=== PATIENT | female | born 1965 | race Caucasian/White ===

== ENCOUNTER → 2020-03-22 | Outpatient (CLI) | payer OTHER ==
[~2020-03-22] MED LIST: BACTRIM 400 MG-1 TAB PO; CYCLOBENZAPRINE10 MG PO; EFFEXOR PO; HYDROCODONE BIT1 T11 PO; SINGULAIR4 MG PO; ZYRTEC10 M3 PO
[2020-03-22 11:13] LABS: BASO # 0.1 10*3/uL (0.0-0.1); BASO % 0.7 % (0.0-1.0); EOS # 0.2 10*3/uL (0.0-0.4); EOS % 2.7 % (1.0-4.0); HEMATOCRIT 40.9 % (37.0-47.0); LYMPH # 2.9 10*3/uL (1.3-4.4); LYMPH % 42.8 % (27.0-41.0); MEAN CELL VOLUME 85.9 fl (81.0-99.0); MEAN CORPUSCULAR HGB 27.7 pg (27.0-31.0); MEAN CORPUSCULAR HGB CONC 32.3 g/dl (33.0-37.0); MEAN PLATELET VOLUME 8.7 fl (9.6-12.3); MONO # 0.4 10*3/uL (0.1-1.0); MONO % 5.2 % (3.0-9.0); NEUT # 3.3 10*3/uL (2.3-7.9); NEUT % 48.5 % (47.0-73.0); PLATELET COUNT AUTOMATED 300 10*3/uL (130-400); RED BLOOD COUNT 4.76 10*6/uL (4.10-5.10); RED CELL DISTRI WIDTH 14.5 % (0-14.5); WHITE BLOOD COUNT 6.8 10*3/uL (4.8-10.8)
[2020-03-22 11:36] LABS: ALBUMIN 4.2 gm/dl (3.1-4.5); ALKALINE PHOSPHATASE 104 U/L (45-117); BUN 11 mg/dl (7-24); CHLORIDE 114 mmol/L (98-107); CREATININE 0.64 mg/dL (0.55-1.02); FREE T4 0.88 ng/dl (0.76-1.46); POTASSIUM 3.9 mmol/L (3.5-5.1); SGOT/AST 9 IU/L (3-35); SGPT/ALT 21 U/L (12-78); SODIUM 141 mmol/L (136-145); TOTAL PROTEIN 7.8 gm/dL (6.4-8.2)
== END | disposition home or self-care (01) ==
LOC: LAB 09:51 → MRI 10:00
PROVIDERS: Psychiatry & Neurology Clinical Neurophysiology
DX: G93.89 Other specified disorders of brain (principal); G43.109 Migraine with aura, not intractable, without status migrainosus; H53.30 Unspecified disorder of binocular vision

== ENCOUNTER → 2020-04-04 | Outpatient (CLI) | payer OTHER ==
[2020-04-04 10:15] LABS: CHOLESTEROL 259 mg/dL (<200); HDL CHOLESTEROL 47 mg/dl (40-60); LDL CHOLESTEROL 135 mg/dL (9-159); TRIGLYCERIDES 384 mg/dl (<150); VLDL CHOLESTEROL 77 mg/dL (6-40)
== END | disposition home or self-care (01) ==
LOC: LAB 09:22
PROVIDERS: ATTEND Psychiatry & Neurology Clinical Neurophysiology
DX: I73.9 Peripheral vascular disease, unspecified (principal); G37.9 Demyelinating disease of central nervous system, unspecified; G43.709 Chronic migraine without aura, not intractable, without status migrainosus

== ENCOUNTER → 2020-04-28 | Outpatient (CLI) | payer OTHER | END | disposition home or self-care (01) | LOC: MRI 12:45 | PROVIDERS: ATTEND Psychiatry & Neurology Clinical Neurophysiology | DX: G43.109 Migraine with aura, not intractable, without status migrainosus (principal); E78.49 Other hyperlipidemia; Z87.891 Personal history of nicotine dependence ==

== ENCOUNTER 2022-02-25 13:54 | Emergency (ER) | payer MEDICARE, MEDICAID ==
[~2022-02-25] VITALS: Ht 162.5 cm; Wt 77.1 kg
[2022-02-25] MEDS ORDERED: LAMOTRIGINE100 MG PO (14:42)
[2022-02-25] MEDS ORDERED: 'CLONIDINE0.1 MG PO (14:42)
[2022-02-25] MEDS ORDERED: QUETIAPINE FUMA50 M1 PO (14:43)
[2022-02-25] MEDS ORDERED: QUETIAPINE FUM300 M1 PO (14:43)
[2022-02-25] MEDS ORDERED: REXULTI2 MG PO (14:43)
[2022-02-25] MEDS ORDERED: ATORVASTATIN CA10 M1 PO (14:44)
[2022-02-25] MEDS ORDERED: HYDROXYZINE PAM50 MG PO (14:44)
[2022-02-25] MEDS ORDERED: ROPINIROLE HYD0.5 MG PO (14:44)
[2022-02-25] MEDS ORDERED: SUMATRIPTAN SUC50 M1 PO (14:44)
[2022-02-25] MEDS ORDERED: PROVENTIL HFA6.7 GM INH (14:45)
[2022-02-25] MEDS ORDERED: IMITREX50 MG PO (14:46)
[2022-02-25 15:07] LABS: BASO # 0.1 10*3/uL (0.0-0.1); BASO % 0.4 % (0.0-1.0); EOS # 0.1 10*3/uL (0.0-0.4); EOS % 0.7 % (1.0-4.0); HEMATOCRIT 39.2 % (37.0-47.0); LYMPH # 2.8 10*3/uL (1.3-4.4); LYMPH % 24.2 % (27.0-41.0); MEAN CELL VOLUME 86.9 fl (81.0-99.0); MEAN CORPUSCULAR HGB 28.8 pg (27.0-31.0); MEAN CORPUSCULAR HGB CONC 33.2 g/dl (33.0-37.0); MEAN PLATELET VOLUME 8.7 fl (9.6-12.3); MONO # 0.9 10*3/uL (0.1-1.0); MONO % 7.9 % (3.0-9.0); NEUT # 7.8 10*3/uL (2.3-7.9); NEUT % 66.5 % (47.0-73.0); PLATELET COUNT AUTOMATED 219 10*3/uL (130-400); RED BLOOD COUNT 4.51 10*6/uL (4.10-5.10); RED CELL DISTRI WIDTH 13.4 % (0-14.5); WHITE BLOOD COUNT 11.7 10*3/uL (4.8-10.8)
[2022-02-25 15:07] LABS: BILIRUBIN 2+ (Negative); BLOOD Negative (Negative); CLARITY Turbid (Clear); COLOR Orange (Yellow); GLUCOSE Negative (Negative); KETONE Negative (Negative); LEUKO ESTERASE 2+ (Negative); NITRITE Positive (Negative); SPECIFIC GRAVITY >= 1.030 (1.001-1.030)
[2022-02-25 15:23] LABS: BACTERIA 2+; CALCIUM OXALATE CRYSTALS 1+; EPITHELIAL CELLS 0-2; HYALINE CAST 0-2
[2022-02-25 15:30] LABS: ALKALINE PHOSPHATASE 82 U/L (45-117); BUN 16 mg/dl (7-24); CHLORIDE 111 mmol/L (98-107); CREATININE 1.14 mg/dL (0.55-1.02); LIPASE 93 U/L (73-393); POTASSIUM 3.5 mmol/L (3.5-5.1); SGOT/AST 23 IU/L (3-35); SGPT/ALT 27 U/L (12-78); SODIUM 138 mmol/L (136-145); TOTAL PROTEIN 7.1 gm/dL (6.4-8.2)
[2022-02-25] MEDS ORDERED: MACROBID100 M1 PO (19:06)
[2022-02-25] MEDS ORDERED: ONDANSETRON4 MG SL (19:08)
== END 2022-02-25 19:14 | disposition home or self-care (01) ==
LOC: ED 13:54
PROVIDERS: Physician Assistant
DX: N39.0 Urinary tract infection, site not specified (principal); N20.0 Calculus of kidney; Z79.899 Other long term (current) drug therapy; Z98.51 Tubal ligation status; Z90.89 Acquired absence of other organs

== ENCOUNTER → 2022-02-28 | Outpatient (CLI) | payer MEDICARE, MEDICAID ==
[~2022-02-28] MED LIST changes: +'CLONIDINE0.1 MG PO; +ATORVASTATIN CA10 M1 PO; +HYDROXYZINE PAM50 MG PO; +IMITREX50 MG PO; +LAMOTRIGINE100 MG PO; +MACROBID100 M1 PO; +ONDANSETRON4 MG SL; +PROVENTIL HFA6.7 GM INH; +QUETIAPINE FUM300 M1 PO; +QUETIAPINE FUMA50 M1 PO; +REXULTI2 MG PO; +ROPINIROLE HYD0.5 MG PO; +SUMATRIPTAN SUC50 M1 PO
== END | disposition home or self-care (01) ==
LOC: MAMMO 07:27
PROVIDERS: ATTEND Nurse Practitioner Family
DX: Z12.31 Encounter for screening mammogram for malignant neoplasm of breast (principal)

== ENCOUNTER 2023-02-09 11:31 | Inpatient (IN) | payer MEDICARE, MEDICAID ==
[2023-02-09] VITALS (8 sets, daily range): BP systolic 118–151; BP diastolic 72–101
[~2023-02-09] VITALS: Ht 162.5 cm; Wt 77.1 kg
[2023-02-09 12:25] LABS: BASO # 0.1 10*3/uL (0.0-0.1); BASO % 0.5 % (0.0-1.0); EOS # 0.1 10*3/uL (0.0-0.4); EOS % 0.8 % (1.0-4.0); HEMATOCRIT 42.4 % (37.0-47.0); LYMPH # 3.4 10*3/uL (1.3-4.4); MEAN CELL VOLUME 86.5 fl (81.0-99.0); MEAN CORPUSCULAR HGB 29.4 pg (27.0-31.0); MEAN PLATELET VOLUME 8.8 fl (9.6-12.3); MONO # 1.1 10*3/uL (0.1-1.0); NEUT # 8.5 10*3/uL (2.3-7.9); NEUT % 64.4 % (47.0-73.0); PLATELET COUNT AUTOMATED 248 10*3/uL (130-400); RED CELL DISTRI WIDTH 13.8 % (0-14.5); WHITE BLOOD COUNT 13.2 10*3/uL (4.8-10.8)
[2023-02-09 12:51] LABS: ALKALINE PHOSPHATASE 98 U/L (46-116); BUN 10 mg/dl (9-23); CHLORIDE 108 mmol/L (98-107); POTASSIUM 2.9 mmol/L (3.4-5.1); SGPT/ALT 20 U/L (10-49); TOTAL PROTEIN 7.3 gm/dL (6.0-8.0)
[2023-02-09 13:01] LABS: BILIRUBIN 1+ (Negative); BLOOD Negative (Negative); CLARITY Cloudy (Clear); COLOR Dark Yellow (Yellow); GLUCOSE Trace (Negative); KETONE Negative (Negative); LEUKO ESTERASE Trace (Negative); NITRITE Positive (Negative); PH 5.5 (4.5-8.0); SPECIFIC GRAVITY 1.025 (1.001-1.030)
[2023-02-09 13:14] LABS: HYALINE CAST 0-2; MUCOUS 1+
[2023-02-09 13:15] LABS: BACTERIA 2+; WBC 0-2 wbc/hpf (0-5)
[2023-02-09 22:57] LABS: URINE AMPHETAMINES Negative (1000ng/ml); URINE BARBITURATES Negative (200ng/ml); URINE BENZODIAZEPINES Negative (200ng/ml); URINE CANNABINOIDS (THC) Negative (50ng/ml); URINE COCAINE Positive (300ng/ml); URINE METHADONE Negative (300ng/ml); URINE OPIATES Positive (300ng/ml); URINE PHENCYCLIDINE Negative (25ng/ml)
[2023-02-10] VITALS (7 sets, daily range): BP systolic 135–163; BP diastolic 72–96
[2023-02-10 06:47] LABS: BASO # 0.1 10*3/uL (0.0-0.1); BASO % 0.4 % (0.0-1.0); HEMATOCRIT 39.7 % (37.0-47.0); LYMPH # 1.9 10*3/uL (1.3-4.4); LYMPH % 13.4 % (27.0-41.0); MEAN CELL VOLUME 84.6 fl (81.0-99.0); MEAN CORPUSCULAR HGB 29.4 pg (27.0-31.0); MEAN CORPUSCULAR HGB CONC 34.8 g/dl (33.0-37.0); MEAN PLATELET VOLUME 8.7 fl (9.6-12.3); MONO # 0.9 10*3/uL (0.1-1.0); MONO % 6.4 % (3.0-9.0); NEUT # 11.2 10*3/uL (2.3-7.9); NEUT % 79.2 % (47.0-73.0); PLATELET COUNT AUTOMATED 277 10*3/uL (130-400); RED BLOOD COUNT 4.69 10*6/uL (4.10-5.10); RED CELL DISTRI WIDTH 13.5 % (0-14.5); WHITE BLOOD COUNT 14.2 10*3/uL (4.8-10.8)
[2023-02-10 08:07] LABS: ALKALINE PHOSPHATASE 97 U/L (46-116); BUN 7 mg/dl (9-23); CHLORIDE 109 mmol/L (98-107); CHOLESTEROL 132 mg/dL (<200); LDL CHOLESTEROL 47 mg/dL (9-159); SGPT/ALT 18 U/L (10-49); TOTAL PROTEIN 7.2 gm/dL (6.0-8.0); TRIGLYCERIDES 83 mg/dl (<150)
[2023-02-11] VITALS: BP 147/91
[2023-02-11] MEDS ORDERED: METFORMIN850 MG PO (06:13)
[2023-02-11] MEDS ORDERED: MIRTAZAPINE15 M2 PO (06:14)
[2023-02-11] MEDS ORDERED: PALIPERIDONE E1.5 MG PO (06:14)
[2023-02-11] MEDS ORDERED: QUETIAPINE FUM100 M3 PO (06:15)
[2023-02-11] MEDS ORDERED: REXULTI3 MG PO (06:16)
[2023-02-11] MEDS ORDERED: QUETIAPINE FUM400 M1 PO (06:16)
[2023-02-11] MEDS ORDERED: TOPIRAMATE100 M2 PO (06:18)
[2023-02-11 07:21] LABS: BASO % 0.2 % (0.0-1.0); HEMATOCRIT 41.3 % (37.0-47.0); LYMPH # 2.1 10*3/uL (1.3-4.4); LYMPH % 12.6 % (27.0-41.0); MEAN CELL VOLUME 82.6 fl (81.0-99.0); MEAN CORPUSCULAR HGB 28.2 pg (27.0-31.0); MEAN CORPUSCULAR HGB CONC 34.1 g/dl (33.0-37.0); MEAN PLATELET VOLUME 8.8 fl (9.6-12.3); MONO # 1.3 10*3/uL (0.1-1.0); MONO % 7.9 % (3.0-9.0); NEUT # 13.3 10*3/uL (2.3-7.9); NEUT % 78.8 % (47.0-73.0); PLATELET COUNT AUTOMATED 330 10*3/uL (130-400); RED CELL DISTRI WIDTH 13.6 % (0-14.5); WHITE BLOOD COUNT 16.9 10*3/uL (4.8-10.8)
[2023-02-11 07:43] LABS: BUN 7 mg/dl (9-23); CHLORIDE 105 mmol/L (98-107); POTASSIUM 3.1 mmol/L (3.4-5.1)
[2023-02-11 08:00] VITALS: BP 150/96
[2023-02-11 11:02] LABS: ACT PARTIAL THROMBO TIME 28.8 SECONDS (20.0-32.1); INTERNATIONAL NORM RATIO 1.1 (2.0-3.5)
[2023-02-11 12:00] VITALS: BP 148/84
[2023-02-11 15:55] VITALS: BP 147/84
[2023-02-11 16:10] VITALS: BP 145/79
[2023-02-11 16:25] VITALS: BP 148/81
[2023-02-11 16:51] LABS: CSF RBC 240000 /uL
[2023-02-11 17:03] LABS: CSF GLUCOSE 22 mg/dL (40-80)
[2023-02-11 17:22] LABS: CSF WBC 1944 /uL
[2023-02-11 17:30] LABS: CLARITY TURBID; COLOR RED
[2023-02-11 18:11] LABS: CSF LYMPHOCYTES 21 % (40-80); CSF MONOCYTES 2 % (15-45)
[2023-02-13 15:07] LABS: CSF CRYPTOCOCCUS AG Negative (Negative)
== END 2023-02-11 19:30 | disposition short-term general hospital (02) | DRG 871 ==
LOC: ED 11:31 → EDHOLD 17:24 → 5E 17:24
PROVIDERS: Internal Medicine; Nurse Practitioner Family; Student in an Organized Health Care Education/Training Program; ADMIT Family Medicine; ATTEND Family Medicine
PROC: 009U3ZX Drainage of Spinal Canal, Percutaneous Approach, Diagnostic (ICD-10-PCS; principal; 2023-02-11)
DX: A41.9 Sepsis, unspecified organism (principal); G03.9 Meningitis, unspecified; N30.00 Acute cystitis without hematuria; G43.909 Migraine, unspecified, not intractable, without status migrainosus; R29.818 Other symptoms and signs involving the nervous system; G89.29 Other chronic pain; R29.898 Other symptoms and signs involving the musculoskeletal system; E87.8 Other disorders of electrolyte and fluid balance, not elsewhere classified; F41.9 Anxiety disorder, unspecified; E87.6 Hypokalemia; G43.019 Migraine without aura, intractable, without status migrainosus; E11.65 Type 2 diabetes mellitus with hyperglycemia; E78.2 Mixed hyperlipidemia; F32.A Depression, unspecified; F43.10 Post-traumatic stress disorder, unspecified; I10 Essential (primary) hypertension; F17.210 Nicotine dependence, cigarettes, uncomplicated; Z79.51 Long term (current) use of inhaled steroids; Z79.899 Other long term (current) drug therapy

== ENCOUNTER 2023-02-25 20:19 | Emergency (ER) | payer MEDICARE, MEDICAID ==
[~2023-02-25 20:19] MED LIST changes: +METFORMIN850 MG PO; +MIRTAZAPINE15 M2 PO; +PALIPERIDONE E1.5 MG PO; +QUETIAPINE FUM100 M3 PO; +QUETIAPINE FUM400 M1 PO; +REXULTI3 MG PO; +TOPIRAMATE100 M2 PO
[2023-02-26] MEDS ORDERED: BIOTIN10 MG PO (00:11)
[2023-02-26] MEDS ORDERED: CALCIUM 500-VI1 EAC6 PO (00:13)
[2023-02-26] MEDS ORDERED: CETIRIZINE10 MG PO (00:14)
[2023-02-26] MEDS ORDERED: VITAMIN D325 MCG PO (00:15)
[2023-02-26] MEDS ORDERED: CYCLOBENZAPRINE5 M3 PO (00:17)
[2023-02-26] MEDS ORDERED: DEPAKOTE500 M2 PO ×2 (00:19→00:20)
[2023-02-26] MEDS ORDERED: DULCOLAX STOOL100 M1 PO (00:21)
[2023-02-26] MEDS ORDERED: NEURONTIN300 MG PO (00:23)
[2023-02-26] MEDS ORDERED: ATARAX,VISTARIL50 MG PO (00:25)
[2023-02-26] MEDS ORDERED: PROCHLORPERAZIN10 MG PO (00:28)
[2023-02-26] MEDS ORDERED: VALTREX1000 MG PO (00:31)
[2023-02-26] MEDS ORDERED: MULTI-VITAMIN1 EACH PO (00:32)
== END 2023-02-25 20:24 ==
LOC: ED 20:19
DX: R56.9 Unspecified convulsions (principal); Z53.21 Procedure and treatment not carried out due to patient leaving prior to being seen by health care provider